=== PATIENT | female | born 1990 | race African-American/Black ===

== ENCOUNTER 2020-03-21 17:57 | Emergency (ER) | payer OTHER, SELFPAY ==
[2020-03-21 17:59] VITALS: BP 132/78; PULSE 96; RESP 20; TEMP 36.2; O2SAT 99
--- NOTE | 2020-03-21 20:56 | ED.GENADULT ---
HPI - General Adult General Chief complaint: Skin/Abscess/Foreign Body <Minal Alston PA-C - Last Filed: 03/21/20 21:04> Stated complaint: rash <SUKUMAR Pittman Last Filed: 03/21/20 21:04> Time Seen by Provider: 03/21/20 20:36 <SUKUMAR Pittman Last Filed: 03/21/20 21:04> Source: patient <SUKUMAR Pittman Last Filed: 03/21/20 21:04> Mode of arrival: ambulatory <SUKUMAR Pittman Last Filed: 03/21/20 21:04> Limitations: no limitations <SUKUMAR Pittman Last Filed: 03/21/20 21:04> History of Present Illness HPI narrative: Patient presents with chief complaint of patches that started on her legs and arms more on other areas of her body's. She states they began the week before [place] and over time she has noticed more more of the areas. She reports they are pruritic. She states no one else at her home with that she has been around has these issues. Patient states that she does have eczema that went to her family. She states that she oftentimes uses different soaps and lotions, but she has not noted issues in the past. Patient denies fever, chills, shortness of breath, chest pain, genital issues, or any other symptoms. <Minal Alston PA-C - Last Filed: 03/21/20 21:04> Related Data Allergies/adverse reactions: Allergies Allergy/AdvReac Type Severity Reaction Status Date / Time No Known Allergies Allergy Unverified 06/20/15 21:29 <Minal Alston PA-C - Last Filed: 03/21/20 21:04> Review of Systems Review of Systems: Narrative: CONSTITUTIONAL: Denies fever, chills, or sweats. EYES: Denies visual changes, redness, or discharge. ENT: Denies rhinorrhea, congestion, sore throat, or otalgia. CARDIOVASCULAR: Denies chest pain, palpitations, or edema. RESPIRATORY: Denies cough or dyspnea. GASTROINTESTINAL: Denies abdominal pain, nausea, vomiting, or diarrhea. GENITOURINARY: Denies dysuria or hematuria. SKIN: Reports rash and itching. MUSCULOSKELETAL: Denies back pain, joint pain, or myalgia. NEUROLOGIC: Denies headache, numbness, dizziness, or weakness. PSYCHIATRIC: Denies anxiety or depression. <Minal Alston PA-C - Last Filed: 03/21/20 21:04> Exam Narrative: Exam Narrative: GENERAL: Well-appearing, well-nourished, and in no acute distress. HEAD: Normocephalic, atraumatic. EYES: PERRLA and EOMI. NECK: Supple. No adenopathy or masses. CHEST: Clear to auscultation. No respiratory distress. No wheezes rales or rhonchi HEART: Regular rate and rhythm. EXTREMITIES: Normal range of motion. No edema. SKIN: Warm, dry. Erythema slightly raised flaky patches on the patient's extremities and torso. No patches are seen on patient's face or neck. There is no central clearing to the patches erythema or drainage. They are slightly hyperpigmented. NEURO: No focal deficits. Alert and oriented x3. PSYCH: Normal mood and affect. <Minal Alston PA-C - Last Filed: 03/21/20 21:04> Course Vital Signs Vital signs: Vital Signs Temperature 36.2 C L 03/21/20 17:59 Pulse Rate 96 03/21/20 17:59 Respiratory Rate 20 03/21/20 17:59 Blood Pressure 132/78 03/21/20 17:59 Pulse Oximetry 99 03/21/20 17:59 Temperature 36.2 C L 03/21/20 17:59 Pulse Rate 96 03/21/20 17:59 Respiratory Rate 20 03/21/20 17:59 Blood Pressure 132/78 03/21/20 17:59 Pulse Oximetry 99 03/21/20 17:59 <SUKUMAR Pittman Last Filed: 03/21/20 21:04> Vital Signs Temperature 36.2 C L 03/21/20 17:59 Pulse Rate 96 03/21/20 17:59 Respiratory Rate 20 03/21/20 17:59 Blood Pressure 132/78 03/21/20 17:59 Pulse Oximetry 99 03/21/20 17:59 Temperature 36.2 C L 03/21/20 17:59 Pulse Rate 96 03/21/20 17:59 Respiratory Rate 20 03/21/20 17:59 Blood Pressure 132/78 03/21/20 17:59 Pulse Oximetry 99 03/21/20 17:59 <Denis Mejia MD - Last Filed: 03/22/20 17:24> Medical Decision Making MDM Narrative Medical deci
== END 2020-03-21 21:18 | disposition home or self-care (01) ==
PROVIDERS: Emergency Provider Emergency Medicine
DX: L30.9 Dermatitis, unspecified (principal)
CPT/HCPCS: 99283

== ENCOUNTER 2020-10-13 13:51 | Emergency (ER) | payer OTHER, SELFPAY ==
[2020-10-13] VITALS (7 sets, daily range): BP systolic 106–125; BP diastolic 56–98; PULSE 62–70; RESP 20; TEMP 36.3–36.8; O2SAT 99–100
--- NOTE | ~2020-10-13 | XR_ITS ---
XR chest 2V DATE: 10/13/2020 14:23 INDICATION: Left chest pain TECHNIQUE: PA and lateral views COMPARISON: 06/20/2015 PA and lateral chest FINDINGS: Normal heart size. No hilar or mediastinal enlargement. No pulmonary infiltrate or consolid ation, pleural effusion or pulmonary vascular congestion or pneumothorax. IMPRESSION: Negative Reviewed, dictated and finalized at location B. IMPRESSION: Negative
--- NOTE | 2020-10-13 14:00 | ECG_ITS ---
Measurements Intervals [place] Rate: 68 P: 57 ND: 165 QRS: 50 QRSD: 102 T: -27 QT: 363 QTc: 388 Interpretive Statements SINUS RHYTHM WITH SINUS ARRHYTHMIA BORDERLINE T WAVE ABNORMALITY- ANTEROLAT/INF LEADS BORDERLINE ECG Electronically Signed On 10-13-2020 14:33:55 CDT by Figueroa Marcus D.O.
[2020-10-13] MEDS: IBUPROFEN 400 MG TABLET 800 MG PO (14:24)
[2020-10-13 15:46] LABS: Basophils Percent Auto 0.2 % (0.2-1.2); Eosinophils Absolute Auto 0.2 K/mm3 (0-0.3); Hematocrit 41.9 % (37.0-47.0); Hemoglobin 13.7 g/dL (12.0-15.0); Immature Granulocyte Absolute 0.02 K/mm3 (0.00-0.031); Immature Granulocyte Percent A 0.2 % (0-0.5); Lymphocytes Absolute Auto 2.64 K/mm3 (0.9-3.2); Lymphocytes Percent Auto 31.5 % (18.3-44.2); Mean Corpuscular HGB Conc 32.7 g/dl (32-36); Mean Corpuscular Hemoglobin 26.9 pg (26-34); Mean Corpuscular Volume 82.3 fl (80-100); Mean Platelet Volume 9.1 fl (7.4-10.4); Monocytes Absolute Auto 0.6 K/mm3 (0.1-0.6); Monocytes Percent Auto 6.9 % (2.6-8.5); Neutrophils Percent Auto 59.2 % (45.5-73.1); Platelet Count Result 432 k/mm3 (150-375); Red Blood Count 5.09 M/mm3 (4.2-5.4); Red Cell Distribution Width 13.1 % (11.5-14.5); White Blood Count 8.4 K/mm3 (4.5-10.0)
[2020-10-13 15:52] LABS: Anion Gap 9 mmol/L (8-16); Blood Urea Nitrogen 11 mg/dL (7-17); Calcium 9.4 mg/dL (8.4-10.2); Carbon Dioxide 24 mmol/L (22-30); Chloride 105 mmol/L (98-107); Estimated CRCL calculation 150 ml/min; Estimated Glomerular Filt Rate > 60; Glucose 107 mg/dL (65-110); Potassium 3.7 mmol/L (3.4-5.0); Sodium 138 mmol/L (137-145)
[2020-10-13 16:00] LABS: INR 0.9; Prothrombin Time 12.5 Seconds (11.1-14.7)
[2020-10-13 16:04] LABS: D Dimer 0.36 ug/mL (<0.48); Troponin I < 0.012 ng/mL (0.000-0.034)
--- NOTE | 2020-10-13 18:15 | ED.CHESTPAIN ---
HPI - Chest Pain General Chief Complaint: Chest Pain Stated Complaint: CP Time Seen by Provider: 10/13/20 13:54 Source: patient and RN notes reviewed Mode of arrival: EMS Limitations: no limitations History of Present Illness HPI narrative: This is a 30 year old female who presents for evaluation of left chest pain. She states her pain started yesterday , and it has been constant. She has had similar pain in the past but she states it normally does not last that long. She describes pain as muscle under her breast. She has pain when she moves her arm and body. She denies associated cough, fever, shortness of breath, nausea, vomiting. She has not taken anything for her pain. She denies any injury. Onset (ago): day(s) (2) Prior episodes: Yes Onset: during rest Pain radiation: none Related Data Allergies Allergy/AdvReac Type Severity Reaction Status Date / Time No Known Allergies Allergy Verified 10/13/20 14:01 Review of Systems Review of Systems: All systems reviewed & are unremarkable except as noted in HPI and below PMFSH Past Medical History Medical History (Updated 10/14/20 @ 00:00 by Arlene Mendez) Patient denies medical problems Surgical History Surgical History (Updated 10/13/20 @ 18:18 by Jo Sylvester MD) No pertinent past surgical history Social History Social History (Updated 10/13/20 @ 18:18 by Jo Sylvester MD) Smoking status: Current every day smoker Substance use type: marijuana Gender identity (if verbalized by the patient): Female Exam Const: General: no acute distress and alert Orientation/consciousness: patient oriented x3 Eyes: EOM: EOMs intact bilaterally Chest: Chest palpation & inspection: tenderness (reproducible pain left lateral sternum) Resp: Effort & Inspection: normal respiratory effort Auscultation: clear to auscultation bilaterally Cardio: Rate: regular rate Rhythm: regular rhythm Heart sounds: no murmurs GI: GI Palp: Yes Soft to palpation, No Tenderness to palpation present (GI) and No Guarding due to palpation present (GI) Auscultation: normal bowel sounds Back/Spine/Pelvis: Back: no CVA tenderness Skin: General skin exam: normal color Rashes: no rashes Neuro: General: patient oriented x3 and moves all extremities Psych: Mental Status: mental status grossly normal Affect: normal affect Course Reevaluation(s) Reevaluation #1: Patient's evaluation has been unremarkable. Pain is likely muscular. Date: 10/13/20 Time: 19:04 Vital Signs Vital signs: Vital Signs Temperature 98.2 F 10/13/20 13:54 Pulse Rate 68 10/13/20 13:54 Respiratory Rate 20 10/13/20 13:54 Blood Pressure 125/66 10/13/20 13:54 Pulse Oximetry 100 10/13/20 13:54 Temperature 97.3 F L 10/13/20 19:09 Pulse Rate 62 10/13/20 18:53 Respiratory Rate 20 10/13/20 18:53 Blood Pressure 113/98 H 10/13/20 18:53 Pulse Oximetry 99 10/13/20 18:53 MDM - Chest Pain Lab Data Attestation: I reviewed the patient's lab results. Result diagrams: 10/13/20 15:32 10/13/20 15:32 Labs: Lab Results 10/13/20 10/13/20 10/13/20 Range/Units 15:32 15:32 15:32 WBC 8.4 (4.5-10.0) K/mm3 RBC 5.09 (4.2-5.4) M/mm3 Hgb 13.7 (12.0-15.0) g/dL Hct 41.9 (37.0-47.0) % MCV 82.3 (80-100) fl MCH 26.9 (26-34) pg MCHC 32.7 (32-36) g/dl RDW 13.1 (11.5-14.5) % Plt Count 432 H (150-375) k/mm3 MPV 9.1 (7.4-10.4) fl Immature Gran % (Auto) 0.2 (0-0.5) % Neut % (Auto) 59.2 (45.5-73.1) % Lymph % (Auto) 31.5 (18.3-44.2) % [place] % (Auto) 6.9 (2.6-8.5) % Eos % (Auto) 2.0 (0-4.4) % Baso % (Auto) 0.2 (0.2-1.2) % Lymph # (Auto) 2.64 (0.9-3.2) K/mm3 [place] # (Auto) 0.6 (0.1-0.6) K/mm3 Eos # (Auto) 0.2 (0-0.3) K/mm3 Baso # (Auto) 0.0 (0.0-0.1) K/mm3 Abs Immat Gran (auto) 0.02 (0.00-0.031) K/mm3 Absolute Neuts (auto) 5.0 (1.
[2020-10-13 18:50] LABS: Troponin I < 0.012 ng/mL (0.000-0.034)
== END 2020-10-13 19:15 | disposition home or self-care (01) ==
PROVIDERS: Emergency Provider General Practice; PCP Family Medicine
DX: R07.89 Other chest pain (principal); F17.200 Nicotine dependence, unspecified, uncomplicated; R94.31 Abnormal electrocardiogram [ECG] [EKG]
CPT/HCPCS: 36415; 71046; 80048; 84484; 85025; 85380; 85610; 85730; 93005; 99284; A9270

== ENCOUNTER 2021-04-11 18:40 | Emergency (ER) | payer OTHER, SELFPAY ==
[2021-04-11 18:49] VITALS: BP 116/74; PULSE 90; RESP 18; TEMP 36.4; O2SAT 97
[2021-04-11 19:22] VITALS: BP 107/74; PULSE 86; RESP 16; O2SAT 99
[2021-04-11] MEDS: diphenhydrAMINE HCl INJ 50 MG/ML VIAL 25 MG IV PUSH (19:32)
[2021-04-11] MEDS: METOCLOPRAMIDE HCL INJ 10 MG/2 ML VIAL IV PUSH (19:32)
[2021-04-11] MEDS: SODIUM CHLORIDE 0.9% IV 1,000 ML 999 ML IV CONT (19:32)
[2021-04-11] MEDS: KETOROLAC 30 MG/ML VIAL (*BKC) IV PUSH (19:32)
--- NOTE | 2021-04-11 19:48 | ED.GENADULT ---
HPI - General Adult General Chief complaint: Neck Pain/Injury Stated complaint: headache x3 days Time Seen by Provider: 04/11/21 18:45 History of Present Illness HPI narrative: Patient is a 30-year-old female who presents to the ER with headache. Ongoing for 3 days. Aching. Initially frontal and then has moved to the back of her head. Endorses photophobia/phonophobia. No fevers or chills or sweats. Reports she is having some muscle spasms in her neck couple days prior to this. They have since resolved. Patient has improvement with [id number] pain medication but when it wears off the pain comes back. No formal history of migraines. Related Data Home Medications Medication Instructions Recorded Confirmed acyclovir 400 mg PO DAILY 04/11/21 Allergies Allergy/AdvReac Type Severity Reaction Status Date / Time No Known Allergies Allergy Verified 04/11/21 19:00 Review of Systems Review of Systems: All systems reviewed & are unremarkable except as noted in HPI and below Constitutional: Constitutional: Denies chills, Denies fever(s) and Denies weakness Eyes: Eyes: Denies change in vision and Reports photophobia ENT: Denies nasal congestion and Denies sore throat Respiratory: Respiratory: Denies cough and Denies dyspnea Gastrointestinal: Gastrointestinal: Denies nausea and Denies vomiting Musculoskeletal: Musculoskeletal: Reports muscle cramps Neurologic: Denies dizziness, Reports headache(s), Denies focal weakness and Denies numbness PMFSH Past Medical History Medical History (Updated 04/11/21 @ 20:21 by Ziyad Huff MD) Patient denies medical problems Surgical History Surgical History (Updated 10/13/20 @ 18:18 by Jo Sylvester MD) No pertinent past surgical history Social History Social History (Updated 10/13/20 @ 18:18 by Jo Sylvester MD) Smoking status: Current every day smoker Substance use type: marijuana Gender identity (if verbalized by the patient): Female Exam Narrative: GENERAL: Well-appearing, well-nourished, and in no acute distress. HEAD: Normocephalic, atraumatic. EYES: PERRL and EOMI. NECK: Supple. Full range of motion without midline tenderness or paraspinal muscular tenderness. No meningismus. CHEST: Clear to auscultation. No respiratory distress. HEART: Regular rate and rhythm. Normal peripheral pulses. ABDOMEN: Soft, nontender, nondistended EXTREMITIES: Normal range of motion. No edema. NEURO: No focal deficits. Clear speech. Alert and oriented x3. PSYCH: Normal mood and affect. Course Course Emergency Course: Headache resolved with fluid/Toradol/Reglan/Benadryl. Patient comfortable without neurologic complaints. No thunderclap presentation. Discharge home. Vital Signs Vital signs: Vital Signs Temperature 97.5 F L 04/11/21 18:49 Pulse Rate 90 04/11/21 18:49 Respiratory Rate 18 04/11/21 18:49 Blood Pressure 116/74 04/11/21 18:49 Pulse Oximetry 97 04/11/21 18:49 Temperature 97.5 F L 04/11/21 18:49 Pulse Rate 86 04/11/21 19:22 Respiratory Rate 16 04/11/21 19:22 Blood Pressure 107/74 04/11/21 19:22 Pulse Oximetry 99 04/11/21 19:22 Medical Decision Making Vital Signs Vital Signs: Vital Signs Temperature 97.5 F L 04/11/21 18:49 Pulse Rate 90 04/11/21 18:49 Respiratory Rate 18 04/11/21 18:49 Blood Pressure 116/74 04/11/21 18:49 Pulse Oximetry 97 04/11/21 18:49 Temperature 97.5 F L 04/11/21 18:49 Pulse Rate 86 04/11/21 19:22 Respiratory Rate 16 04/11/21 19:22 Blood Pressure 107/74 04/11/21 19:22 Pulse Oximetry 99 04/11/21 19:22 Discharge Plan Discharge Clinical Impression: Migraine Patient Disposition: Home, Self-Care Condition: Stable Instructions: Migraine Headache (ED) Additional Instructions: Return the ER if you have worsening headache, you lose consciousness, you have focal weakness in arm or leg, you develop fever over 100.4 ?F, you
[2021-04-11 20:34] VITALS: BP 106/84; PULSE 84; RESP 17; O2SAT 97
== END 2021-04-11 20:35 | disposition home or self-care (01) ==
PROVIDERS: Emergency Provider Emergency Medicine
DX: G43.909 Migraine, unspecified, not intractable, without status migrainosus (principal)
CPT/HCPCS: 96361; 96374; 96375; 99284; J1200; J1885; J2765; J7030

== ENCOUNTER 2022-08-23 10:15 | Outpatient (RCR) | payer OTHER, SELFPAY ==
--- NOTE | 2022-07-11 16:57 | PTOPEVAL1 ---
Assessment and note entered by Christian Donnelly, PT Evaluation Information Assessment Status Evaluation Diagnosis EDY plantar fascitis Onset 6 months Subjective Information Patient reports having EDY foot pain for 6 months with the pain getting progressively worse. She has done injections, insoles, night splints, even a walking boot with none giving complete relief. 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 Pain is worst first thing in the morning. Reported Pain Level Pain Score 6: Self Report Assessment PT Clinical Summary John is a 31 year old female coming into the clinic with a diagnosis of EDY plantar fasciitis. She has decreased strength and range of motion in her ankles along with tights calfs and tenderness over the plantar fascia. Physical therapy will do stretching and strengthening of the ankles and calfs along with modalities and manual therapy for pain control. Plan of Care Interventions Electrical Stimulation,Gait Training,Hot Pack/Cold Pack,Manual Therapy,Neuro Re-education,Patient/ Caregiver Education,Therapeutic Activities, Therapeutic Exercise,Ultrasound Other Interventions cupping, taping, IASTM PT Services Indicated Yes Treatment Frequency and 1-2x/wk for 4 weeks Duration These treatments will address the objective and functional deficits as defined above. The patient will be advanced safely and appropriately in order for the patient to progress towards his/her prior level of function. Additional exercises will be introduced and as well as a comprehensive home exercise program upon discharge, if needed, ?to ensure carryover of functional gains achieved in the clinic. This treatment plan has been reviewed and agreement upon by the patient.
--- NOTE | 2022-08-23 11:04 | PTOPDC ---
Assessment and note entered by Christian Donnelly, PT Evaluation Information Assessment Status Discharge Diagnosis EDY plantar fascitis Onset 6 months Subjective Information Patient reports she still has pain, but it is tolerable now and she is doing her exercises. Patient is looking into getting a less bulky night splint to see if that helps. Patient feels like she can be discharged from skilled physical therapy and just do the exercises and still make progress. Daughter massages her feet for her. Reported Pain Level Pain Score 6: Self Report Assessment PT Clinical Summary John is a 32 year old female coming into the clinic with a diagnosis of EDY plantar fascitis. She was evaluated on 07/11/22 and attended 6 sessions of physical therapy. She made improvements in ankle range of motion including meeting her inversion goal. Also increased strength and decreased high end of pain to 6/10 from 10/10. Patient still has some ways to go, but with addition of night splint and continuing to do her exercises should consider to make more improvements. Plan of Care PT Services Indicated No
== END 2022-08-23 12:13 | disposition home or self-care (01) ==
LOC: ANHPT 10:15
PROVIDERS: Visit Provider Podiatrist Foot & Ankle Surgery
DX: M72.2 Plantar fascial fibromatosis (principal)
CPT/HCPCS: 97032; 97110; 97140; 97161; 97530

== ENCOUNTER 2022-12-27 08:29 | Emergency (ER) | payer OTHER, SELFPAY ==
[2022-12-27 08:43] VITALS: BP 121/72; PULSE 84; RESP 16; TEMP 36.7; O2SAT 99
[2022-12-27 08:44] VITALS: BP 121/72; PULSE 84; RESP 16; TEMP 36.7; O2SAT 99
--- NOTE | 2022-12-27 08:58 | ED.FEMALEGU ---
HPI - Female Genitourinary General Chief complaint: Urogenital-Female Stated complaint: vaginal issue Time Seen by Provider: 12/27/22 08:50 Source: patient and RN notes reviewed Mode of arrival: ambulatory Limitations: no limitations History of Present Illness HPI Narrative: Patient presents today with a 1 month history of red, swollen, and itchy vulva. She saw her OBGYN a few weeks ago and was tested for herpes and STDs. She was treated for herpes and Trichomonas with Valtrex and metronidazole. States symptoms did not improve. She has not tried any [id number] medication for symptoms prior to arrival. Related Data Allergies Allergy/AdvReac Type Severity Reaction Status Date / Time No Known Allergies Allergy Verified 12/27/22 08:43 Review of Systems Review of Systems: CONSTITUTIONAL: Denies body aches, fever, chills, or sweats. EYES: Denies visual changes, redness, or discharge. ENT: Denies rhinorrhea, congestion, sore throat, or otalgia. CARDIOVASCULAR: Denies chest pain, palpitations, or edema. RESPIRATORY: Denies cough or dyspnea. GASTROINTESTINAL: Denies abdominal pain, nausea, vomiting, or diarrhea. GENITOURINARY: Denies dysuria or hematuria.+ itching and swollen vulva SKIN: Denies rash, itching, or wounds. MUSCULOSKELETAL: Denies back pain, joint pain, or myalgia. NEUROLOGIC: Denies headache, numbness, tingling, or weakness. PSYCH: Denies depression or anxiety. [facility] Past Medical History Medical History Insertion of Nexplanon 01/2019 Patient denies medical problems Surgical History Surgical History No pertinent past surgical history Family History Family History Other Cerebrovascular accident Diabetes mellitus Hypertension Social History Social History Smoking status: Current some day smoker Alcohol intake: current Alcohol use details: socially Substance use: current Substance use type: marijuana Living arrangements: with family Occupation/Education: unemployed Gender identity (if verbalized by the patient): Female Comments At time of signature, I have reviewed and agree with nursing past medical, surgical, social and family history unless otherwise noted. Please see nursing chart for further information. There is no relevant family history pertinent to the presenting complaint Exam Narrative: GENERAL: Well-appearing, well-nourished, and in no acute distress. HEAD: Normocephalic, atraumatic. EYES: EOMI. No redness or drainage. Conjunctivae normal. ENT: Mucous membranes pink and moist. NECK: Normal AROM. CHEST: No respiratory distress. : Exam deferred EXTREMITIES: Normal range of motion. No edema. SKIN: Warm, dry, no rash. Capillary refill normal. Normal skin turgor. NEURO: No focal deficits. Alert and oriented x3. Gait steady. PSYCH: Normal affect. No signs of depression or anxiety. Course Course Level of Care: Express Care Visit Vital Signs Vital signs: Vital Signs Temperature 98.1 F 12/27/22 08:43 Pulse Rate 84 12/27/22 08:43 Respiratory Rate 16 12/27/22 08:43 Blood Pressure 121/72 12/27/22 08:43 Pulse Oximetry 99 12/27/22 08:43 Oxygen Delivery Room Air 12/27/22 08:43 Temperature 98.1 F 12/27/22 08:44 Pulse Rate 84 12/27/22 08:44 Respiratory Rate 16 12/27/22 08:44 Blood Pressure 121/72 12/27/22 08:44 Pulse Oximetry 99 12/27/22 08:44 Oxygen Delivery Room Air 12/27/22 08:44 Reviewed MDM - Female Genitourinary MDM Narrative Medical decision making narrative: Patient's symptoms are consistent with candidal vulvovaginitis. Will treat with course of Diflucan. Patient has been wearing pads, so I have instructed her to stop were in the pads for a few
== END 2022-12-27 09:09 | disposition home or self-care (01) ==
PROVIDERS: Emergency Provider Nurse Practitioner
DX: B37.31 Acute candidiasis of vulva and vagina (principal); F17.200 Nicotine dependence, unspecified, uncomplicated; F12.90 Cannabis use, unspecified, uncomplicated
CPT/HCPCS: 99213; G0463

== ENCOUNTER 2023-12-16 09:17 | Outpatient (CLI) | payer OTHER, SELFPAY ==
--- NOTE | ~2023-12-16 | XR_ITS ---
XR hip LT min 2V 12/16/2023 09:35 Indication: Chronic left hip pain Procedure: 2 views left hip Comparison: No prior studies for comparison. Findings: There is anatomic alignment. No fracture, subluxation or dislocation. No soft tissue abnorm ality. No foreign bodies. There is mild osteoarthritis. Impression: 1: Mild osteoarthritis of the left hip. Reviewed, dictated and finalized at location B. Impression: 1: Mild osteoarthritis of the left hip.
== END 2023-12-16 09:18 | disposition home or self-care (01) ==
PROVIDERS: PCP Internal Medicine; Visit Provider Internal Medicine
DX: M16.12 Unilateral primary osteoarthritis, left hip (principal)
CPT/HCPCS: 73502

== ENCOUNTER 2024-10-10 15:10 | Emergency (ER) | payer SELFPAY ==
--- NOTE | ~2024-10-10 | XR_ITS ---
EXAM: XR hip LT 2V w AP pelvis DATE: 10/10/2024 15:40 HISTORY: pain without trauma . COMPARISON: 12/16/2023. FINDINGS: Normal mineralization. No fracture or dislocation. No lytic or blastic lesion. Mild left h ip osteoarthritis. No erosion or periosteal change. Soft tissues within normal limits. IMPRESSION: No acute osseous finding in the left hip. Reviewed, dictated and finalized at location K.
--- OUTSIDE RECORDS SUMMARY | 2024-10-10 15:13 | XMS_ITS | Continuity of Care Document ---
Author Organization [facility] [place] Address [address] [facility] [address] [place] [address] Phone Care Team Providers Care Skidway Worker Name Role Phone Em RAINES, FELTON, Simin Unavailable Unavailable Procedures Procedure Date Progress Note Neuromuscular Re-Ed Therapeutic Activities Therapeutic Exercise Manual Therapy Hot or Cold Pack Therapeutic Activities Neuromuscular Re-Ed Hot or Cold Pack Electrical Stimulation Therapeutic Exercise Manual Therapy Therapeutic Activities Hot or Cold Pack Electrical Stimulation Therapeutic Exercise Manual Therapy Neuromuscular Re-Ed Therapeutic Activities Neuromuscular Re-Ed Therapeutic Exercise Manual Therapy Hot or Cold Pack Therapeutic Exercise Neuromuscular Re-Ed Therapeutic Activities Manual Therapy Hot or Cold Pack Neuromuscular Re-Ed Therapeutic Activities Manual Therapy Electrical Stimulation Therapeutic Exercise Hot or Cold Pack Neuromuscular Re-Ed Therapeutic Exercise Therapeutic Activities Hot or Cold Pack Manual Therapy Electrical Stimulation Electrical Stimulation Manual Therapy Neuromuscular Re-Ed Therapeutic Exercise PT Evaluation Low Complexity Progress Note Neuromuscular Re-Ed Therapeutic Activities Manual Therapy Hot or Cold Pack Therapeutic Exercise Therapeutic Exercise Neuromuscular Re-Ed Therapeutic Activities Hot or Cold Pack Manual Therapy Therapeutic Activities Neuromuscular Re-Ed Therapeutic Exercise Manual Therapy Hot or Cold Pack Therapeutic Activities Neuromuscular Re-Ed Progress Note Manual Therapy Hot or Cold Pack Therapeutic Exercise Neuromuscular Re-Ed Hot or Cold Pack Therapeutic Exercise Therapeutic Activities Manual Therapy Therapeutic Activities Therapeutic Exercise Neuromuscular Re-Ed Hot or Cold Pack Manual Therapy Therapeutic Activities Neuromuscular Re-Ed Hot or Cold Pack Therapeutic Exercise Manual Therapy Progress Note Therapeutic Activities Therapeutic Exercise Neuromuscular Re-Ed Manual Therapy Hot or Cold Pack Therapeutic Activities Manual Therapy Therapeutic Exercise Hot or Cold Pack Neuromuscular Re-Ed Therapeutic Exercise Neuromuscular Re-Ed Therapeutic Activities Hot or Cold Pack Manual Therapy Therapeutic Activities Therapeutic Exercise Neuromuscular Re-Ed Manual Therapy Hot or Cold Pack PT Evaluation Low Complexity Neuromuscular Re-Ed Therapeutic Exercise Advance Directives Directive Yes / No Effective Date File Name No Information Encounters Encounter Description Practice Location Reason(s) For Visit Diagnoses Date Provider Providers Copied on Encounter [facility] [place] [facility], [place], [place], [id number], tel:[phone] [place] No Information Mar-1 8- 2 Lehnen Simin. . [facility] [place] [place] [employer] [address] [place] [address], [id number], tel:[phone] [place] No Information Mar-0 9-202 2 Lehnen Simin. . [facility], [place], [place], [id number], [place] tel:[phone] [place] No Information Mar-0 8-202 2 Lehnen Simin. . [facility], [id number], tel:[phone] [place] No Information Mar-0 4-202 2 Lehnen Simin. . [facility], [place], [place], [address], [place] tel:[phone] [place] No Information Mar-0 2-202 2 Lehnen Simin. . [facility], [place], [place], [address], tel:[phone] [place] No Information Feb-2 8- 2 Lehnen Simin. . [facility], [place], [place], [id number], tel:[phone] [place] No Information 2 Lehnen Simin. . [facility], [place], [place], [address], tel:[phone] [place] No Information - 2 Lehnen Simin. . [facility], [address] [facility] [address], [place], [place], [address], tel:[phone] [place] No Information 2 Lehnen Simin. . [facility], [address] [facility], [place], [place], [address], tel:[phone] [place] No Information 2 Lehnen Simin. . Referring Provider: Rhianna Stauffer [address], [place], [address]. tel:[phone] [facility] [place] [address] [facility] [address], [place], [place], [address], tel:[phone] [place] No Information 2 Lehnen Simin. . Referring Provider: Rhianna Stauffer S [address], [place], [address]. tel:[phone] [facility] [address] [address], [place], [place], [address], tel:[phone] [place] No Information 1 Lehnen Simin. . Referring Provider: Rhianna Stauffer [address], [place], [address]. tel:[phone] [facility] [address], [place], [place], [address], tel:[phone] [place] No Information 1 Lehnen Simin. . Referring Provider: Rhianna Stauffer [address], [place], [address]. tel:[phone] [facility] [address], [place], [place], [address], [place] tel:[phone] [place] No Information Dec-1 5-202 1 Lehnen Simin. . Referring Provider: Mach[address], [place], [address]. tel:[phone], [place], [place], [address], [place] tel:[phone] [place] No Information Dec-1 3-202 1 Lehnen Simin. . Referring Provider: Macho [address], [place], [address]. tel:[phone] [place] [address] [facility] [address], [place], [place], [address], [place] tel:[phone] [place] No Information Dec-1 0-202 1 Lehnen Simin. . Referring Provider: Macho St[address], [place], [address]. tel:[phone] [facility] [address], [place], [place], [address], [place] tel:[phone] [place] No Information Dec-0 6-202 1 Lehnen Simin. . Referring Provider: Macho [address], [place], [address]. tel:[phone] [facility] [address], [place], [place], [address], [place] tel:[phone] [place] No Information Dec-0 2-202 1 Lehnen Simin. . Referring Provider: Macho [address], [place], [address]. tel:[phone] [facility] [address], [place], [place], [address], [place] tel:[phone] [place] No Information 1 Em Duval. . Referring Provider: Macho [address], [place], [address]. tel:[phone] [facility], [address] [place], [place] [address], [place], [place], [address], tel:[phone] [place] No Information 1 Em Duval. . Referring Provider: Macho Stau[address], [place], [address]. tel:[phone] [address], [place], [place], [address], tel:[phone] [place] No Information 1 Em Duval. . Referring Provider: Macho Stau[address], [place], [address]. tel:[phone] Family History Family Member Type Diagnosis Age At Onset No Information Payers Payer name Insurance type Covered democrat ID Authorcarlos aa joyce(s) [employer] [place] 00 Social History Type Description Quantity Date Captured Comments Sex Female Smoking Status No Information Chief Complaint And Reason For Visit No Information Reason For Referral Reason For Referral No Information Plan Of Treatment Date Type Action Status Referral Ordered: Clinical Psychology (related to Depression) ordered Referral Ordered: PCP timeframe: 1 week. (related to Overweight) ordered Referral Ordered: Depression: Depression management program timeframe: 1 Day. (related to Depression) ordered Referral Ordered: Referrals: Specialist. Evaluate and Treat (related to Adjustment disorder with depressed mood) ordered Referral Ordered: Weight management: Referral to physician timeframe: 1 Month. (related to Overweight) ordered Referral Ordered: Depression: Depression management program timeframe: 1 Day. (related to Depression) ordered Referral Ordered: Clinical Psychology (related to Depression) ordered Referral Ordered: PCP timeframe: 1 week. (related to Overweight) ordered Referral Ordered: Referrals: Specialist. Evaluate and Treat (related to Adjustment disorder with depressed mood) ordered Referral Ordered: Weight management: Referral to physician timeframe: 1 Month. (related to Overweight) ordered History Of Present Illness Encounter Date Complaint History Of Prese nt Illness No Information Functional Status Date Functional Assessmen t No Information Instructions Date Instruction Additional Infor mation No Information Assessments Type Assessment Date No Information Patient Care Teams Name Effective Dates (start - stop) Status Members No Information
--- OUTSIDE RECORDS SUMMARY | 2024-10-10 15:13 | XMS_ITS | Clinical Summary ---
Author Organization [facility] Address [address] [facility] [place] [address] Care Team Providers Care Wildlife Ecologist Name Role Phone Everardo Summers MD Primary Care Provider [phone] Everardo Summers MD Unavailable [phone] Source Comments [facility],non-owned Affiliates and Associated Physician Practices is amultiple site organization consisting of ambulatory clinics and hospital sitesin [place], [place], [place] and [place]. This disclosure is being madepursuant to the Care Everywhere program and may not contain all information available regarding this patient. Last updated 17.[facility] Allergies No known active allergies Medications * Be aware that medications may not be up to date on this document. Alwaysverify current medications with the patient. acetaminophen (TYLENOL) 500 MG tablet Take 1 (one) tablet by mouth every 4 hours as needed for Fever or Pain Maximum allowable Acetaminophen amount = 4 Grams (4000 mg) / 24 hours. 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 Gender Identity Not on file Sexual Orientation Not on file Last Filed Vital Signs Vital Sign Reading Time Taken Comments Blood Pressure 101/71 12/23/2020 7:51 AM CDT Pulse 98 12/23/2020 7:51 AM CDT Temperature 36.6 C (97.8 F) 12/23/2020 7:51 AM CDT Respiratory Rate 16 12/23/2020 7:51 AM CDT Oxygen Saturation 98% 12/23/2020 7:51 AM CDT Inhaled Oxygen Concentration - - Weight 86.2 kg (190 lb) 12/23/2020 7:51 AM CDT Height 172.7 cm (5' 8) 12/23/2020 7:51 AM CDT Body Mass Index 28.89 12/23/2020 7:51 AM CDT Plan of Treatment Health Maintenance Due Date Last Done Comments HIV SCREENING 07/15/2007 HEPATITIS C SCREENING 07/10/2010 DTAP/TDAP/TD VACCINES (1 - Tdap) 07/15/2011 HEPATITIS B VACCINE (1 of 3 - 19+ 3-dose series) 07/15/2011 HPV VACCINE (1 - 3-dose SCDM series) 07/15/2019 COVID-19 VACCINE (1 - 2023-2 5 season) 2023 DEPRESSION SCREENING 03/10/2024 INFLUENZA VACCINE (#1) 2024 ZOSTER VACCINE (1 of 2) 2042 HIB VACCINE Aged Out No longer eligi ble based on patient's age to complete this topic MENINGOCOCCAL (Group B) VACC INE SHARED DECISION-MAKING Aged Out No longer eligibl e based on patient's age to complete this topic MENINGOCOCCAL GROUPS A/C/Y/W VACCINE Aged Out No longer eligible b ased on patient's age to complete this topic PNEUMOCOCCAL VACCINE Aged Out No long er eligible based on patient's age to complete this topic Insurance [facility] TP THIRD [employer] PARTY LIABILITY Green [employer] Liability Care Teams Wildlife Ecologist Relationship Specialty Start Date End Date Everardo Summers MD [address] [place] [address] PCP - General 05/12/09 Everardo Summers MD [address] [place] [address] 05/12/09
--- OUTSIDE RECORDS SUMMARY | 2024-10-10 15:13 | XMS_ITS | Referral Summary ---
Author Organization [facility] Address [address] [place] [address] Care Team Providers Care Hotel Receptionist Name Role Phone Joanna Silva MD Primary Care Provider [phone] Allergies No known active allergies Medications butalbital-acet aminophen-caffe ine (ESGIC) 50-325-40 mg per tablet Take 1 tablet by mouth every 4 (four) hours as needed for headaches 15 tablet 2 Active ondansetron (ZOFRAN) 4 mg tablet Take 1 tablet (4 mg total) by mouth every 6 (six) hours as needed for nausea or vomiting 21 tablet 2 Active Social History Tobacco Use Types Packs/Day Years Used Date Smoking Tobacco: Never Assessed Personal Safety Answer Date Recorded Getting School Help Needed Not on file 05/24 Comments No Sex and Gender Information Value Date Recorded Sex Assigned at Not on file Legal Sex Female 9:13 PM LIME BOILER Gender Identity Female 04/13/2021 2:53 PM LIME BOILER Sexual Orientation Not on file Last Filed Vital Signs Vital Sign Reading Time Taken Comments Blood Pressure 119/59 04/13/2021 5:48 PM LIME BOILER Pulse 60 04/13/2021 5:48 PM LIME BOILER Temperature 36.9 C (98.5 F) 04/13/2021 1:54 PM LIME BOILER Respiratory Rate 22 04/13/2021 5:48 PM LIME BOILER Oxygen Saturation 99% 04/13/2021 5:48 PM LIME BOILER Inhaled Oxygen Concentration - - Weight 103 kg (227 lb 1.2 oz) 04/13/2021 1:54 PM LIME BOILER Height 172.7 cm (5' 8) 04/13/2021 1:54 PM LIME BOILER Body Mass Index 34.53 04/13/2021 1:54 PM LIME BOILER Plan of Treatment Not on file Insurance Care Teams Hotel Receptionist Relationship Specialty Start Date End Date Joanna Silva MD [address] [facility] [place] [address] PCP - General Internal Medicine 04/13/21
--- OUTSIDE RECORDS SUMMARY | 2024-10-10 15:13 | XMS_ITS | Clinical Summary ---
Author Organization [facility] Address [address] [place] [address] Care Team Providers Care Personal Assistant Name Role Phone Joanna Silva MD Primary Care Provider [phone] Allergies No known active allergies Medications butalbital-acet [...] on file Legal Sex Female 9:13 PM LINOLEUM LAYER HELPER Gender Identity Female 04/13/2021 2:53 PM LINOLEUM LAYER HELPER Sexual Orientation Not on file Last Filed Vital Signs Vital Sign Reading Time Taken Comments Blood Pressure 119/59 04/13/2021 5:48 PM LINOLEUM LAYER HELPER Pulse 60 04/13/2021 5:48 PM LINOLEUM LAYER HELPER Temperature 36.9 C (98.5 F) 04/13/2021 1:54 PM LINOLEUM LAYER HELPER Respiratory Rate 22 04/13/2021 5:48 PM LINOLEUM LAYER HELPER Oxygen Saturation 99% 04/13/2021 5:48 PM LINOLEUM LAYER HELPER Inhaled Oxygen Concentration - - Weight 103 kg (227 lb 1.2 oz) 04/13/2021 1:54 PM LINOLEUM LAYER HELPER Height 172.7 cm (5' 8) 04/13/2021 1:54 PM LINOLEUM LAYER HELPER Body Mass Index 34.53 04/13/2021 1:54 PM LINOLEUM LAYER HELPER Plan of Treatment Not on file Insurance Care Teams Personal Assistant Relationship Specialty Start Date End Date Joanna Silva MD [address] [facility] [place] [address] PCP - General Internal Medicine 04/13/21
--- OUTSIDE RECORDS SUMMARY | 2024-10-10 15:15 | XMS_ITS | Continuity of Care Document ---
Author Organization [facility] Address [address] [facility] [address] [place] [address] Phone Care Team Providers Care Glass Artist Name Role Phone Em RAINES, FELTON, Simin Unavailable Unavailable Procedures Procedure Date Progress Note Neuromuscular Re-Ed Therapeutic Activities Therapeutic Exercise Hot or Cold Pack Manual Therapy Therapeutic Activities Neuromuscular Re-Ed Hot or Cold Pack Manual Therapy Therapeutic Exercise Electrical Stimulation Therapeutic Activities Neuromuscular Re-Ed Hot or Cold Pack Therapeutic Exercise Electrical Stimulation Manual Therapy Therapeutic Activities Neuromuscular Re-Ed Therapeutic Exercise Hot or Cold Pack Manual Therapy Neuromuscular Re-Ed Hot or Cold Pack Therapeutic Exercise Therapeutic Activities Manual Therapy Therapeutic Activities Neuromuscular Re-Ed Therapeutic Exercise Electrical Stimulation Hot or Cold Pack Manual Therapy Therapeutic Exercise Electrical Stimulation Therapeutic Activities Neuromuscular Re-Ed Manual Therapy Hot or Cold Pack PT Evaluation Low Complexity Therapeutic Exercise Manual Therapy Neuromuscular Re-Ed Electrical Stimulation Progress Note Neuromuscular Re-Ed Therapeutic Activities Manual Therapy Hot or Cold Pack Therapeutic Exercise Neuromuscular Re-Ed Hot or Cold Pack Therapeutic Activities Therapeutic Exercise Manual Therapy Neuromuscular Re-Ed Therapeutic Activities Therapeutic Exercise Hot or Cold Pack Manual Therapy Neuromuscular Re-Ed Therapeutic Activities Progress Note Manual Therapy Therapeutic Exercise Hot or Cold Pack Hot or Cold Pack Neuromuscular Re-Ed Therapeutic Activities Manual Therapy Therapeutic Exercise Therapeutic Exercise Neuromuscular Re-Ed Therapeutic Activities Hot or Cold Pack Manual Therapy Therapeutic Activities Hot or Cold Pack Neuromuscular Re-Ed Manual Therapy Therapeutic Exercise Therapeutic Exercise Therapeutic Activities Progress Note Neuromuscular Re-Ed Manual Therapy Hot or Cold Pack Therapeutic Activities Manual Therapy Therapeutic Exercise Neuromuscular Re-Ed Hot or Cold Pack Therapeutic Exercise Therapeutic Activities Neuromuscular Re-Ed Manual Therapy Hot or Cold Pack Therapeutic Activities Therapeutic Exercise Neuromuscular Re-Ed Manual Therapy Hot or Cold Pack PT Evaluation Low Complexity Neuromuscular Re-Ed Therapeutic Exercise Advance Directives Directive Yes / No Effective Date File Name No Information Encounters Encounter Description Practice Location Reason(s) For Visit Diagnoses Date Provider Providers Copied on Encounter [facility] [place] [facility], [place], [place], [address], tel:[phone] [place] No Information Mar-1 8- 2 Lehnen Simin. . [facility] [place] [address], [id number], tel:[phone] [place] No Information Mar-0 9-202 2 Lehnen Simin. . [facility], [place], [place], [address], [place] tel:[phone] [place] No Information Mar-0 8-202 2 Lehnen Simin. . [facility], [place], [address], tel:[phone] [place] No Information Mar-0 4-202 2 Lehnen Simin. . [facility], [place], [place], [id number], [place] tel:[phone] [place] No Information Mar-0 2-202 2 Lehnen Simin. . [facility], [place], [place], [address], tel:[phone] [place] No Information Feb-2 8- 2 Lehnen Simin. . [facility], [place], [place], [address], tel:[phone] [place] No Information 2 Lehnen Simin. . [facility], [place], [place], [address], tel:[phone] [place] No Information - 2 Lehnen Simin. . [facility], [address] [facility] [address], [place], [place], [address], tel:[phone] [place] No Information 2 Lehnen Simin. . [facility], [address] [facility], [place], [place], [address], tel:[phone] [place] No Information 2 Lehnen Simin. . Referring Provider: Rhianna Stauffer S [address], [place], [address]. tel:[phone] [facility] [facility] [facility] [address], [place], [place], [address], tel:[phone] [place] No Information 2 Lehnen Simin. . Referring Provider: Rhianna Stauffer [address], [place], [address]. tel:[phone] [facility] [address] [address], [place], [place], [address], tel:[phone] [place] No Information 1 Lehnen Simin. . Referring Provider: Rhianna Stauffer [address], [place], [address]. tel:[phone] [facility] [address], [place], [place], [address], tel:[phone] [place] No Information 1 Lehnen Simin. . Referring Provider: Rhianna Stauffer [address], [place], [address]. tel:[phone] [facility] [address], [place], [place], [address], [place] tel:[phone] [place] No Information Dec-1 5-202 1 Lehnen Simin. . Referring Provider: Macho [address], [place], [address]. tel:[phone], [place], [place], [address], [place] tel:[phone] [place] No Information Dec-1 3-202 1 Lehnen Simin. . Referring Provider: Macho [address], [place], [address]. tel:[phone] [place] [address] [facility] [address], [place], [place], [address], [place] tel:[phone] [place] No Information Dec-1 0-202 1 Lehnen Simin. . Referring Provider: Macho [address], [place], [address]. tel:[phone] [facility] [address], [place], [place], [address], [place] tel:[phone] [place] No Information Dec-0 6-202 1 Lehnen Simin. . Referring Provider: Macho [address], [place], [address]. tel:[phone] [facility] [address], [place], [place], [address], [place] tel:[phone] [place] No Information Dec-0 2-202 1 Lehnen Simin. . Referring Provider: Macho [address], [place], [address]. tel:[phone] [facility] [address], [place], [place], [address], [place] tel:[phone] [place] No Information 1 Em Duval. . Referring Provider: Macho [address], [place], [address]. tel:[phone] [facility], [address] [place], [place] [address], [place], [place], [address], tel:[phone] [place] No Information 1 Em Duval. . Referring Provider: Macho St[address], [place], [address]. tel:[phone] [address], [place], [place], [address], tel:[phone] [place] No Information 1 Em Duval. . Referring Provider: Macho [address], [place], [address]. tel:[phone] Family History Family Member Type Diagnosis Age At Onset No Information Payers Payer name Insurance type Covered democrat ID Authorcarlos aa joyce(s) [employer] [place] 00 Social History Type Description [...]
[2024-10-10 15:21] VITALS: BP 109/59; PULSE 88; RESP 18; TEMP 36.3; O2SAT 100
--- NOTE | 2024-10-10 15:26 | ED.LOWEXIN ---
HPI - Extremity Injury (Lower) General Chief Complaint: Wound/Laceration Stated Complaint: hip pain Time Seen by Provider: 10/10/24 15:11 patient presents to Express [facility] with complaints of worsening left hip pain. Patient noted having intermittent left hip pain all her life. noted she has never had any x-rays, imaging, or significant evaluation of this area. Patient reports occasionally when walking this will give out and have sharp shooting pain in the area. Denies any pain that radiates down the leg, numbness, or tingling. Patient denies any known injury in her life to the hip. Denies any lower back pain, abdominal pain, difficulty with bowel movements, or urinary symptoms. Occasionally takes ibuprofen with some relief of symptoms Related Data Allergies Allergy/AdvReac Type Severity Reaction Status Date / Time No Known Allergies Allergy Verified 10/10/24 15:33 Review of Systems Constitutional: Constitutional: Reports as per HPI, Denies chills, Denies fatigue, Denies fever(s) and Denies weakness Eyes: Eyes: Reports no additional eye complaints Cardiovascular: Cardiovascular: Reports no additional cardiovascular complaints Respiratory: Respiratory: Reports no additional respiratory complaints Gastrointestinal: Gastrointestinal: Reports no additional gastrointestinal complaints Genitourinary: Genitourinary: Reports as per HPI, Denies nocturia, Denies dysuria and Denies urinary incontinence Musculoskeletal: Musculoskeletal: Reports as per HPI, Reports arthralgias, Reports joint swelling and Denies muscle cramps Integumentary/Breasts: Skin/Breast: Reports as per HPI, Denies pruritus, Denies rash and Denies skin ulcer Neurologic: Reports as per HPI, Denies numbness and Denies weakness Psychiatric: Psychiatric: Reports no additional psychiatric complaints Endocrine: Endocrine: Reports no additional endocrine complaints Hematologic/Lymphatic: Hematologic/Lymphatic: Reports no additional hematologic/lymphatic complaints Allergic/Immunologic: Allergic/Immunologic: Reports no additional allergic/immunologic complaints [facility] Past Medical History Medical History Insertion of Nexplanon 01/2019 Patient denies medical problems Surgical History Surgical History No pertinent past surgical history Family History Family History Other Cerebrovascular accident Diabetes mellitus Hypertension Social History Social History Smoking status: Current some day smoker Alcohol intake: current Alcohol use details: socially Substance use: current Substance use type: marijuana Living arrangements: with family Occupation/Education: unemployed Gender identity (if verbalized by the patient): Female Exam Const: General: healthy appearing and no acute distress Nutritional Appearance: well nourished Orientation/consciousness: patient oriented x3 Limitations: no limitations Resp: Effort & Inspection: normal respiratory effort Cardio: Rate: regular rate GI: GI Palp: Yes Soft to palpation, No Tenderness to palpation present (GI), No Guarding due to palpation present (GI), No Rigid due to palpation and No Rebound tenderness present : General: Yes bladder normal to palpation and Yes no CVA tenderness Back/Spine/Pelvis: Back: no CVA tenderness Other: No lumbar vertebral tenderness, No paraspinal tenderness. no muscle spasms noted. Skin: General skin exam: normal color Rashes: no rashes Wounds: no wounds Neuro: General: patient oriented x3 and moves all extremities Speech: normal speech Gait exam (Neuro): Normal gait present Extrem: Left lower extremity: hip/thigh Details: normal to inspection, tenderness Location: of the hip and normal ROM; inspection normal, no swelling, ROM normal, no abrasions, no lacerations, no ecchymosis, no crepitus, no foreign bodies, no penetrating wound, no deformity and no unusual warmth Psych: Mental Status: mental status grossly normal Affect: normal affect Attitude: cooperative Course Course Level of Care: Express Care Visit Vital Signs Vital signs: Vital Signs Temperature 97.4 F L 10/10/24 15:21 Pulse Rate 88 10/10/24 15:21 Respiratory Rate 18 10/10/24 15:21 Blood Pressure 109/59 L 10/10/24 15:21 Pulse Oximetry 100 10/10/24 15:21 Oxygen Delivery Room Air 10/10/24 15:21 Temperature 97.4 F L 10/10/24 15:21 Pulse Rate 88 10/10/24 15:21 Respiratory Rate 18 10/10/24 15:21 Blood Pressure 109/59 L 10/10/24 15:21 Pulse Oximetry 100 10/10/24 15:21 Oxygen Delivery Room Air 10/10/24 15:21 MDM - Extremity Injury (Lower) MDM Narrative Medical decision making narrative: x-rays ordered. Likely will need continued follow-up with primary care physician given length of time of injury. Discharge instructions reviewed with patient, as well as provided in writing per nursing staff. The instructions also include specific and strict return/GO TO THE ER as well as f/u information. All questions have been answered, and the patient deny any further questions with discharge and discharge plan. Differential Diagnosis Differential diagnosis: Likely ankle sprain and strain, fracture of femur and fracture of hip Medical Records Attestation: I reviewed the patient's medical records. Imaging Data Attestation: I personally reviewed and interpreted this imaging study as follows: My impression: no abnormality Radiologist's impression: IMPRESSION: No acute osseous finding in the left hip. Reviewed, dictated and finalized at location K. Discharge Plan Discharge Clinical Impression: Arthralgia of hip, left Patient Disposition: Home Condition: Stable Instructions: Antibiotic Form, Arthralgia (ED), Hip Pain (ED) Additional Instructions: Xray showed no fracture. Minimize activities that aggravate the condition The RICE protocol. Follow the RICE protocol as soon as possible after your injury: Rest your hip when painful by not walking on it. Ice should be immediately applied to keep the swelling down. It can be used for 20 to 30 minutes, three or four times daily. Do not apply ice directly to your skin. Elevate your leg above the level of your heart as often as possible Medication: Nonsteroidal anti-inflammatory drugs (NSAIDs) such as ibuprofen and naproxen can help control pain and swelling. Because they improve function by both reducing swelling and controlling pain, they are a better option for mild sprains than narcotic pain medicines. Please schedule a follow-up visit with your personal physician for further evaluation and treatment within 1week OR If your symptoms persist, change or worsen significantly before you can contact your personal physician then please, without delay, go to the emergency department for further evaluation. Patient Language: Ecuadorean Prescriptions: New methocarbamol 750 mg tablet 750 mg PO TID Qty: 30 0RF methylprednisolone [Medrol (Rebel)] 4 mg tablets,dose pack See Rx Instructions .ROUTE .COMPLEX Qty: 21 0RF Rx Instructions: for 6 days Follow-up/Referrals: UNKNOWN,DOCTOR [Primary Care Provider] - Time of Disposition: 16:16
== END 2024-10-10 16:41 | disposition home or self-care (01) ==
PROVIDERS: Emergency Provider Nurse Practitioner Family
DX: M25.552 Pain in left hip (principal); F17.200 Nicotine dependence, unspecified, uncomplicated; F12.90 Cannabis use, unspecified, uncomplicated
CPT/HCPCS: 73502; 99213; G0463